=== PATIENT | male | born 1995 | race Caucasian/White ===

== ENCOUNTER 2016-08-12 21:50 | Emergency (ER) | payer OTHER ==
[2016-08-12 21:56] VITALS: BP 123/71; PULSE 71; TEMP 97.9
--- NOTE | 2016-08-12 22:48 | PDOC ---
History of Present Illness - General Chief Complaint: Abscess Boil Stated Complaint: ABCESS BOIL Time Seen by Provider: 08/12/16 22:34 History Source: Patient Exam Limitations: No Limitations - History of Present Illness Initial Comments: 08/12/16 22:43 CC PAIN AND SWELLING TO LEFT GROIN POST SHAVING AREA X 2 DAYS AGO Timing/Duration: reports: yesterday Severity: Yes: mild Respiratory Risk Factors: denies: no cause identified Past History - Past Medical History Allergies/Adverse Reactions: Allergies Allergy/AdvReac Type Severity Reaction Status Date / Time shellfish derived Allergy Verified 08/12/16 21:53 Home Medications: Ambulatory Orders NK [No Known Home Medication] 03/16/14 - Psycho/Social/Smoking Cessation Hx Anxiety: No Suicidal Ideation: No Smoking History: Current every day smoker Have you smoked in the past 12 months: Yes Number of Cigarettes Smoked Daily: 0 Information on smoking cessation initiated: Yes 'Breaking Loose' booklet given: 08/12/16 Hx Alcohol Use: No Drug/Substance Use Hx: No Substance Use Type: Marijuana Review of Systems - Review of Systems Constitutional: No: Chills, Fever, Malaise Respiratory: No: Symptoms reported, Cough Integumentary: Yes: Erythema (TO LEFT GROIN), Other *Physical Exam - Vital Signs Last Vital Signs Temp Pulse Resp BP Pulse Ox 97.9 F 71 14 123/71 98 08/12/16 21:53 08/12/16 21:53 08/12/16 21:53 08/12/16 21:53 08/12/16 21:53 - Physical Exam General Appearance: Yes: Appropriately Dressed. No: Apparent Distress HEENT: negative: TMs Normal, Pharynx Normal Neck: positive: Supple. negative: Tender, Rigid, Lymphadenopathy (R), Lymphadenopathy (L) Respiratory/Chest: positive: Lungs Clear Integumentary: positive: Other (1CM X .5 CM RED INDURATED AREA LEFT LATERAL GROIN TO AREA OF SHAVED PUBIC HAIR; PENIS, SCROTUM NOT INVOLVED) Medical Decision Making - Medical Decision Making 08/12/16 22:46 WILL SUGGEST WOUND CHECK IN 3 DAYS; AVOID SHAVING AREA; AND START ABX./ BACTRIM *DC/Admit/Observation/Transfer Diagnosis at time of Disposition: Cellulitis of groin, left - Discharge Dispostion Disposition: HOME Condition at time of disposition: Stable Admit: No - Patient Instructions Additional Instructions: WARM SOAKS TO AREA; WOUND CHECK IN ED IN 3 DAYS; DON'T SHAVE AREA IN FUTURE
== END 2016-08-12 22:52 | disposition home or self-care (01) ==
LOC: JERFT 21:50
DX: L03.314 Cellulitis of groin (principal)
CPT/HCPCS: 99281-25

== ENCOUNTER 2017-08-06 14:05 | Emergency (ER) | payer OTHER ==
[2017-08-06 14:13] VITALS: BP 102/72; PULSE 77; TEMP 97.8; BMI 23.0
[2017-08-06] MEDS ORDERED: CEFAZOLIN 1 GM in DEXTROSE 5%-WATER - 50 ML IVPB ONE (15:00)
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
[2017-08-06] MEDS ORDERED: CEFAZOLIN 1 GM/D5W 1 GM/50 ML BAG ONE (15:36)
[2017-08-06] MEDS ORDERED: IBUPROFEN 600 MG TABLET (FP) PO ONE ×2 (16:03→16:06)
== END 2017-08-06 16:31 | disposition home or self-care (01) ==
LOC: JERFT 14:05
DX: S97.82XA Crushing injury of left foot, initial encounter (principal); S90.512A Abrasion, left ankle, initial encounter; S90.812A Abrasion, left foot, initial encounter; V28.0XXA Motorcycle driver injured in noncollision transport accident in nontraffic accident, initial encounter; Y93.89 Activity, other specified; Y92.488 Other paved roadways as the place of occurrence of the external cause; Y99.8 Other external cause status
CPT/HCPCS: 73610-TC-LT; 73630-TC-LT; 99282-25

== ENCOUNTER 2017-08-18 12:40 | Emergency (ER) | payer OTHER ==
[2017-08-18 12:44] VITALS: BP 112/57; PULSE 59; TEMP 97.8; BMI 23.0
[2017-08-18] MEDS ORDERED: KETOROLAC TROMETHAMINE 60 MG/2 ML VIAL IM ONE (14:55)
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
[2017-08-18] MEDS ORDERED: KETOROLAC TROMETHAMINE 60 MG/2 ML VIAL ONE (14:56)
== END 2017-08-18 15:10 | disposition home or self-care (01) ==
LOC: JERFT 12:40
DX: Z09 Encounter for follow-up examination after completed treatment for conditions other than malignant neoplasm (principal)
CPT/HCPCS: 99281-25

== ENCOUNTER 2022-12-26 06:52 | Emergency (ER) | payer OTHER ==
[2022-12-26 07:03] VITALS: BP 109/56; PULSE 65; RESP 16; TEMP 98.4; BMI 23.0
== END 2022-12-26 08:30 | disposition home or self-care (01) ==
LOC: JER 06:52
DX: L02.415 Cutaneous abscess of right lower limb (principal); L02.32 Furuncle of buttock; L03.90 Cellulitis, unspecified
CPT/HCPCS: 99283-25

== ENCOUNTER 2023-03-22 21:12 | Emergency (ER) | payer OTHER ==
[2023-03-22 21:19] VITALS: BP 114/67; PULSE 82; RESP 19; TEMP 98.6; BMI 23.0
== END 2023-03-22 23:54 | disposition home or self-care (01) ==
LOC: JERFT 21:12 → JER 21:12 → JERFT 23:54
PROC: 0HQFXZZ Repair Right Hand Skin, External Approach (ICD-10-PCS; principal; 2023-03-22)
DX: S61.011A Laceration without foreign body of right thumb without damage to nail, initial encounter (principal); W26.8XXA Contact with other sharp object(s), not elsewhere classified, initial encounter
CPT/HCPCS: 99282-25

== ENCOUNTER 2023-04-02 13:50 | Emergency (ER) | payer OTHER ==
[2023-04-02 14:05] VITALS: BP 106/52; PULSE 60; RESP 17; TEMP 98.1; BMI 25.0
== END 2023-04-02 14:18 | disposition home or self-care (01) ==
LOC: JERFT 13:50
DX: Z48.02 Encounter for removal of sutures (principal)
CPT/HCPCS: 99281-25

== ENCOUNTER 2023-04-20 19:27 | Emergency (ER) | payer OTHER ==
[2023-04-20 19:41] VITALS: BMI 25.1
[2023-04-20] MEDS ORDERED: ACETAMINOPHEN 1000 MG/100 ML BAG IVPB ONE (19:50)
[2023-04-20] MEDS ORDERED: ACETAMINOPHEN INJECTION 100 ML IVPB ONE (19:52)
[2023-04-20 20:03] LABS: BASO % 0.6 % (0-2.0); EOS % 0.1 % (0-4.5); HEMATOCRIT 42.1 % (35.4-49); HEMOGLOBIN 14.9 GM/dL (11.7-16.9); LYMPH % 11.1 % (8-40); MCH 29.8 pg (25.7-33.7); MCHC 35.3 g/dl (32.0-35.9); MEAN CELL VOLUME 84.4 fl (80-96); MONO % 5.5 % (3.8-10.2); NEUT % 82.7 % (42.8-82.8); PLATELET COUNT 167 10^3/uL (134-434); RBC 4.99 M/mm3 (4.00-5.60); RDW 13.4 % (11.9-15.9); WHITE BLOOD COUNT 14.6 K/mm3 (4.0-10.0)
[2023-04-20 20:09] LABS: INR 1.18 (0.83-1.09); PROTHROMBIN TIME (PATIENT) 13.7 SEC (9.7-13.0)
[2023-04-20 20:12] LABS: ACTIVATED PTT 28.5 SECONDS (25.2-36.5)
[2023-04-20 20:18] LABS: CHLORIDE 103 mmol/L (98-107); SODIUM 138 mmol/L (136-145)
[2023-04-20 20:19] LABS: CALCIUM 9.8 mg/dL (8.5-10.1)
[2023-04-20 20:21] LABS: ALBUMIN 4.8 g/dl (3.4-5.0); ANION GAP 8 MMOL/L (8-16); BLOOD UREA NITROGEN 14.1 mg/dL (7-18); CO2 27 mmol/L (21-32); GLUCOSE,RANDOM 74 mg/dL (74-106)
[2023-04-20 20:24] LABS: CREATININE 1.3 mg/dL (0.55-1.3); SGOT/AST 22 U/L (15-37); SGPT/ALT 17 U/L (13-61)
[2023-04-20 20:25] LABS: TOT PROT 8.5 g/dl (6.4-8.2)
[2023-04-20 20:26] LABS: BILIRUBIN,TOTAL 0.4 mg/dL (0.2-1)
[2023-04-20 20:27] LABS: ALK PHOS 72 U/L (45-117)
[2023-04-20 20:57] VITALS: BP 101/43; PULSE 67; RESP 12
[2023-04-20] MEDS ORDERED: LACTATED RINGERS SOLUTION 1000 ML INFUS.BAG IV ONE (21:30)
[2023-04-20] MEDS ORDERED: SODIUM CHLORIDE 0.9% 500 ML INFUS.BAG IV ONE (21:38)
[2023-04-20] MEDS ORDERED: BACITRACIN 0.9 GM PACKET ONE (23:09)
== END 2023-04-20 23:24 | disposition home or self-care (01) ==
LOC: JER 19:27
CPT/HCPCS: 0241U-QW; 36415; 70450-TC; 70486-TC; 71045-TC-FY; 71260-TC; 72125-TC; 72128-TC; 72131-TC; 72170-TC-FY; 74177-TC; 80053; 80307; 82962; 84484; 85025; 85610; 85730; 86850; 86900; 86901; 93005; 93010; 99282-25; Q9967

== ENCOUNTER 2023-04-30 09:25 | Emergency (ER) | payer OTHER ==
[2023-04-30 09:43] VITALS: BP 100/67; PULSE 68; RESP 18; TEMP 98.2; BMI 23.0
== END 2023-04-30 10:06 | disposition home or self-care (01) ==
LOC: JERFT 09:25
DX: Z48.02 Encounter for removal of sutures (principal)
CPT/HCPCS: 99281-25

== ENCOUNTER 2024-01-08 19:08 | Emergency (ER) | payer SELFPAY ==
[2024-01-08 19:25] VITALS: BP 109/51; PULSE 63; RESP 20; TEMP 98; BMI 23.0
== END 2024-01-08 21:50 | disposition home or self-care (01) ==
LOC: JER 19:08
PROC: 0H9JXZZ Drainage of Left Upper Leg Skin, External Approach (ICD-10-PCS; principal; 2024-01-08)
DX: L02.416 Cutaneous abscess of left lower limb (principal)
CPT/HCPCS: 99283-25

== ENCOUNTER 2024-12-21 23:06 | Emergency (ER) | payer OTHER ==
[2024-12-21 23:24] VITALS: BP 112/55; PULSE 87; RESP 20; TEMP 97.9; BMI 23.0
[2024-12-22] MEDS ORDERED: ACETAMINOPHEN 500 MG TABLET (FP) ONE (00:05)
[2024-12-22] MEDS ORDERED: IBUPROFEN 400 MG TABLET (FP) PO ONE (00:06)
[2024-12-22] MEDS ORDERED: oxyCODONE HCL 5 MG TABLET ONE (00:06)
[2024-12-22] MEDS ORDERED: LIDOCAINE 2.5%/PRILOCAINE 2.5% (5 Gram/TUBE) TP ONE (00:06)
[2024-12-22] MEDS: oxyCODONE HCL 5 MG TABLET PO ONE (00:20)
[2024-12-22] MEDS: IBUPROFEN 400 MG TABLET (FP) PO ONE (00:20)
[2024-12-22] MEDS: ACETAMINOPHEN 500 MG TABLET (FP) PO ONE (00:20)
[2024-12-22] MEDS: LIDOCAINE 2.5%/PRILOCAINE 2.5% 30 GRAM TUBE TP ONE (00:20)
[2024-12-22] MEDS ORDERED: LIDOCAINE 1%/EPI 1:100000 (20 ML MULTI DOSE VIAL) ONE (00:27)
[2024-12-22] MEDS: AMOX TR/POT CLAV 875MG/125MG TABLETS (FP) PO ONE (01:13)
== END 2024-12-22 01:32 | disposition home or self-care (01) ==
LOC: JER 23:06
PROC: 0H98XZZ Drainage of Buttock Skin, External Approach (ICD-10-PCS; principal; 2024-12-21)
DX: L02.31 Cutaneous abscess of buttock (principal)
CPT/HCPCS: 76705-TC; 87070; 87076; 87205; 99284-25